=== PATIENT | female | born 1950 | race Caucasian/White ===

== ENCOUNTER → 2019-08-04 | Outpatient (CLI) | payer MEDICARE ==
--- NOTE | 2019-08-04 09:48 | DIREP ---
PROCEDURE:XRAY SPINE LUMBAR 2-3 VWS COMPARISON:None. INDICATIONS:M54.42 LUMBAGO WITH SCIATICA, LEFT SIDE TECHNIQUE:AP, lateral, and coned down lateral views of the lumbar spine are provided. FINDINGS: ALIGNMENT:Grade 1 anterolisthesis of L4 on L5. VERTEBRAE:No fracture. DISK SPACES:Moderate to severe intervertebral disc height loss L2-L3 and mild to moderate intervertebral disc height loss L4-L5. SACROILIAC JOINTS:Normal. OTHER:Normal. CONCLUSION: Degenerative changes in the lumbar spine, as above. Dictated by: Rukhsana Doe MD on 08/04/2019 at 09:37 AM
== END | disposition home or self-care (01) ==
LOC: RAD 09:02
PROVIDERS: ATTEND Internal Medicine
DX: M47.816 Spondylosis without myelopathy or radiculopathy, lumbar region (principal); M43.16 Spondylolisthesis, lumbar region; M54.42 Lumbago with sciatica, left side
CPT/HCPCS: 72100